=== PATIENT | male | born 1980 | race Caucasian/White ===

== ENCOUNTER 2019-03-09 17:53 | Day surgery (SDC) | payer SELFPAY ==
[2019-03-09] MEDS ORDERED: Sodium Chloride 0.9% 10 ML Syringe FLUSH PRN (18:25)
--- NOTE | 2019-03-09 18:31 | EDM.PDOC ---
ED HPI GENERAL MEDICAL PROBLEM - General Chief Complaint: Skin Complaint Stated Complaint: SWOLLEN FOOT NOT AN ACCIDENT Time Seen by Provider: 03/09/19 18:28 History Limitations: Reports: No Limitations - History of Present Illness INITIAL COMMENTS - FREE TEXT/NARRATIVE: 38 year old male present to ER with two females with severe left ankle pain and swelling. Patient denies fall or injury. Patient uses marijuana but has not used in the last 2 days. Patient has had fever and low grade temperature. Patient did not have symptoms yesterday in either foot. Patient has exquisite pain in the left ankle with swelling and erythema. Patient denies fall or injury. 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 Patient has slight pain in right ankle with erythema without swelling noted. Patient has a small open wound/blister in posterior Achilles skin. Patient has not taken Tylenol or Ibuprofen for pain as he does not like taking pills. Patient worked all last week and spent time with kids on Saturday. Patient has slight erythema left ankle on Saturday but did not think anything of it. Patient states the left ankle was sore all day on Saturday and severe today. Patient is unable to walk on ankle/foot at this time. Patient noted slight erythema right ankle which similar to the appearance of left ankle looked like on Saturday. Patient is not in a stable relationship as his previous significant other cheated with another male and he is having custody battles with her at this time. Patient denies penile rash, drainage or lesions in the recent or remote past. Patient adamantly denied drug use he hates needles and does not take pills. He uses Marijuana but has not used in 2 days. Patient was offended that the triage nurse asked about drug use due to agitation, rapid speech and general appearance of patient and family members at bedside. Left Ankle Pain Score (Numeric/FACES): 1 - Related Data Allergies Allergy/AdvReac Type Severity Reaction Status Date / Time No Known Allergies Allergy Verified 03/09/19 19:29 Home Meds: Home Meds NK [No Known Home Meds] 03/09/19 [History] Past Medical History Musculoskeletal History: Reports: Fracture - Past Surgical History Other Musculoskeletal Surgeries/Procedures:: hand surgery Social & Family History - Tobacco Use Smoking Status *Q: Current Every Day Smoker Years of Tobacco use: 25 Packs/Tins Daily: 0.5 - Caffeine Use Caffeine Use: Reports: Coffee, Energy Drinks, Soda, Tea - Recreational Drug Use Recreational Drug Use: Yes Recreational Drug Type: Reports: Marijuana/Hashish Recreational Drug Use Frequency: Daily ED ROS GENERAL - Review of Systems Review Of Systems: See Below (difficulty to obtained due to very rapid speach and agressive behavior) Constitutional: Reports: Fever, Chills HEENT: Reports: No Symptoms Respiratory: Reports: Other (pain with deep breath). Denies: Shortness of Breath, Wheezing, Cough, Sputum, Hemoptysis Cardiovascular: Reports: No Symptoms Endocrine: Reports: No Symptoms GI/Abdominal: Reports: No Symptoms : Reports: No Symptoms Musculoskeletal: Reports: Other (per HPI) Skin: Reports: Other (per HPI) Neurological: Reports: No Symptoms Psychiatric: Reports: Agitation (due to pain per patient. He does not like needles or taking pills) Hematologic/Lymphatic: Reports: No Symptoms Immunologic: Reports: No Symptoms ED EXAM, SKIN/RASH Exam: See Below General Appearance: Alert, WD/WN, Anxious, Severe Distress, Other (very rapid speach which is difficult to follow) Eye Exam: Bilateral Eye: EOMI, PERRL Ears: Normal External Exam, Normal Canal, Hearing Grossly Normal Nose: Normal Inspection, Normal Mucosa Throat/Mouth: Normal Inspection, Normal Lips, Normal Gums, Normal Oropharynx, Normal Voice, No Airway Compromise, Other (poor oral health) Head: Normocephalic Neck: Normal Inspection, Supple, Non-Tender, Full Range of Motion Respiratory/Chest: No Respiratory Distress, Lungs Clear, Normal Breath Sounds, No Accessory Muscle Use, Other (slight pain bilaterla lower ribs with deep breath) Cardiovascular: Normal Peripheral Pulses, Regular Rate, Rhythm, Tachycardia GI/Abdominal: Normal Bowel Sounds, Soft, Non-Tender, No Organomegaly, No Distention, No Abnormal Bruit, No Mass, Other (thin). No: Distended, Guarding, Rigid, Rebound, Tender Back Exam: Normal Inspection, Full Range of Motion, NT Extremities: Normal Inspection, Normal Range of Motion (except left ankle), No Pedal Edema, Normal Capillary Refill, Joint Swelling (significant swelling left ankle with abrasion posterior achilles, erythema, warmth and severe pain), Limited Range of Motion (severely limited), Increased Warmth, Redness, Other ( slight erythema blotch right ankle) Neurological: Alert, Oriented, CN II-XII Intact, Normal Reflexes, No Motor/ Sensory Deficits, Inattentive (rapid speach difficulty to follow), Abnormal Gait (due to left foot pain), Sensory/Motor Deficit (left foot pain out of proportion with examination) Psychiatric: Anxious, Other (very rapid in speach and upable to keep focuses. Family interrupt with questioning. ) Skin: Warm, Dry, Intact, Normal Color EKG INTERPRETATION EKG Date: 03/09/19 Time: 18:45 Rhythm: NSR Rate (Beats/Min): 98 [place]: Normal P-Wave: Present (baseline artificat in multiple LEADS) QRS: Normal ST-T: Normal (baseline artificat in multiple LEADS) QT: Prolonged (slightly 458) Comparison: NA - No Prior EKG Course - Vital Signs Last Recorded V/S: Last Vital Signs Temp 38.4 C H 03/09/19 19:02 Pulse 87 03/09/19 20:36 Resp 19 03/09/19 19:02 BP 99/67 03/09/19 20:36 Pulse Ox 96 03/09/19 19:02 - Orders/Labs/Meds Orders: Active Orders 24 hr Category Date Time Status Transfer Patient (Change bed) [ADT] ASDIRECTED ADT 03/09/19 21:09 Ordered EKG Documentation Completion [RC] ASDIRECTED Care 03/09/19 18:26 Active Peripheral IV Care [RC] . DIRECTED Care 03/09/19 18:26 Active Verify Patient Consent Obtain [RC] ASDIRECTED Care 03/09/19 20:54 Active NPO [Nothing Per Oral Diet] [DIET] Diet 03/10/19 Breakfast Active VL Duplex Lwr Ext Veins Comp [US] Stat Exams 03/09/19 19:12 Ordered CULTURE BLOOD [BC] Urgent Lab 03/09/19 18:30 Received CULTURE BLOOD [BC] Urgent Lab 03/09/19 18:43 Received CULTURE BODY FLUID + SMEAR [] Stat Lab 03/09/19 20:20 Results Iopamidol [Isovue-300 (61%)] Med 03/09/19 19:32 Active 100 ml IV . DIRECTED PRN Sodium Chloride 0.9% [Normal Saline] 1,000 ml Med 03/09/19 18:45 Active IV ASDIRECTED Sodium Chloride 0.9% [Saline Flush] Med 03/09/19 18:25 Active 10 ml FLUSH ASDIRECTED PRN Blood Culture x2 Reflex Set [OM.PC] Urgent Oth 03/09/19 18:26 Ordered Peripheral IV Insertion Adult [OM.PC] Urgent Oth 03/09/19 18:26 Ordered EKG 12 Lead [EK] Urgent Ther 03/09/19 18:26 Ordered Medication Orders Sodium Chloride (Normal Saline) 1,000 mls @ 1,000 mls/hr IV ASDIRECTED SCOTTY Last Admin: 03/09/19 18:43 Dose: 1,000 mls/hr Iopamidol (Isovue-300 (61%)) 100 ml IV . DIRECTED PRN PRN Reason: RADIOLOGY EXAM Stop: 03/10/19 19:33 Last Admin: 03/09/19 20:27 Dose: 100 ml Sodium Chloride (Saline Flush) 10 ml FLUSH ASDIRECTED PRN PRN Reason: Keep Vein Open Labs: Laboratory Tests 03/09/19 03/09/19 03/09/19 Range/Units 18:25 18:30 18:30 WBC 9.3 (4.5-11.0) K/uL RBC 4.11 L (4.30-5.90) M/uL Hgb 12.9 (12.0-15.0) g/dL Hct 37.1 L (40.0-54.0) % MCV 90 (80-98) fL MCH 31 (27-31) pg MCHC 35 (32-36) % Plt Count 332 (150-400) K/uL Neut % (Auto) 76 H (36-66) % Lymph % (Auto) 11 L (24-44) % [place] % (Auto) 13 H (2-6) % Eos % (Auto) 0 L (2-4) % Baso % (Auto) 0 (0-1) % PT (9.5-12.0) sec INR (0.80-1.20) D-Dimer, Quantitative 566 H (0.0-400.0) ng/mL Sodium 135 L (140-148) mmol/L Potassium 2.8 L* (3.6-5.2) mmol/L Chloride 98 L (100-108) mmol/L Carbon Dioxide 26 (21-32) mmol/L Anion Gap 13.8 (5.0-14.0) mmol/L BUN 10 (7-18) mg/dL Creatinine 1.1 (0.8-1.3) mg/dL Est Cr Clr Drug Dosing 103.23 mL/min Estimated GFR (MDRD) > 60 (>60) Glucose 103 (74-106) mg/dL Lactic Acid (0.4-2.0) mmol/L Calcium 8.4 L (8.5-10.1) mg/dL Magnesium (1.8-2.4) mg/dL C-Reactive Protein (0.0-0.3) mg/dL 03/09/19 03/09/19 03/09/19 Range/Units 18:30 18:30 18:30 WBC (4.5-11.0) K/uL RBC (4.30-5.90) M/uL Hgb (12.0-15.0) g/dL Hct (40.0-54.0) % MCV (80-98) fL MCH (27-31) pg MCHC (32-36) % Plt Count (150-400) K/uL Neut % (Auto) (36-66) % Lymph % (Auto) (24-44) % [place] % (Auto) (2-6) % Eos % (Auto) (2-4) % Baso % (Auto) (0-1) % PT 10.7 (9.5-12.0) sec INR 0.99 (0.80-1.20) D-Dimer, Quantitative (0.0-400.0) ng/mL Sodium (140-148) mmol/L Potassium (3.6-5.2) mmol/L Chloride (100-108) mmol/L Carbon Dioxide (21-32) mmol/L Anion Gap (5.0-14.0) mmol/L BUN (7-18) mg/dL Creatinine (0.8-1.3) mg/dL Est Cr Clr Drug Dosing mL/min Estimated GFR (MDRD) (>60) Glucose (74-106) mg/dL Lactic Acid 1.4 (0.4-2.0) mmol/L Calcium (8.5-10.1) mg/dL Magnesium (1.8-2.4) mg/dL C-Reactive Protein 15.25 H (0.0-0.3) mg/dL 03/09/19 Range/Units 19:33 WBC (4.5-11.0) K/uL RBC (4.30-5.90) M/uL Hgb (12.0-15.0) g/dL Hct (40.0-54.0) % MCV (80-98) fL MCH (27-31) pg MCHC (32-36) % Plt Count (150-400) K/uL Neut % (Auto) (36-66) % Lymph % (Auto) (24-44) % [place] % (Auto) (2-6) % Eos % (Auto) (2-4) % Baso % (Auto) (0-1) % PT (9.5-12.0) sec INR (0.80-1.20) D-Dimer, Quantitative (0.0-400.0) ng/mL Sodium (140-148) mmol/L Potassium (3.6-5.2) mmol/L Chloride (100-108) mmol/L Carbon Dioxide (21-32) mmol/L Anion Gap (5.0-14.0) mmol/L BUN (7-18) mg/dL Creatinine (0.8-1.3) mg/dL Est Cr Clr Drug Dosing mL/min Estimated GFR (MDRD) (>60) Glucose (74-106) mg/dL Lactic Acid (0.4-2.0) mmol/L Calcium (8.5-10.1) mg/dL Magnesium 2.1 (1.8-2.4) mg/dL C-Reactive Protein (0.0-0.3) mg/dL Meds: Medications Generic Name Dose Route Start Last Admin Trade Name Freq PRN Reason Stop Dose Admin Sodium Chloride 1,000 mls @ 1,000 mls/hr 03/09/19 18:45 03/09/19 18:43 Normal Saline IV 1,000 mls/hr ASDIRECTED SCOTTY Administration Iopamidol 100 ml 03/09/19 19:32 03/09/19 20:27 Isovue-300 (61%) IV 03/10/19 19:33 100 ml . DIRECTED PRN Administration RADIOLOGY EXAM Sodium Chloride 10 ml 03/09/19 18:25 Saline Flush FLUSH ASDIRECTED PRN Keep Vein Open Discontinued Medications Generic Name Dose Route Start Last Admin Trade Name Galo PRN Reason Stop Dose Admin Hydromorphone HCl 0.5 mg 03/09/19 18:33 03/09/19 18:42 Dilaudid IVPUSH 03/09/19 18:34 0.5 mg ONETIME ONE Administration Ceftriaxone Sodium 1 gm/ 50 mls @ 100 mls/hr 03/09/19 20:56 Sodium Chloride IV 03/09/19 21:25 ONETIME ONE Ketorolac Tromethamine 30 mg 03/09/19 18:37 03/09/19 18:42 Toradol IVPUSH 03/09/19 18:38 30 mg ONETIME ONE Administration Lorazepam 2 mg 03/09/19 18:33 03/09/19 18:43 Ativan IVPUSH 03/09/19 18:34 2 mg ONETIME ONE Administration Metoclopramide HCl 5 mg 03/09/19 18:33 03/09/19 18:43 Reglan IVPUSH 03/09/19 18:34 5 mg ONETIME ONE Administration - Re-Assessments/Exams Free Text/Narrative Re-Assessment/Exam: I went to reassess patient. He is on the phone and states pain is improved and does not need any more medications at this time. 03/09/19 19:09 Lab called about a critical potassium of 2.8. Patient updated and stated he has a history of low potassium. He was given medication to elevated potassium and he got a rash. He does not take potassium supplement and does not want it treated at this time. I contacted supervisor network control operators Orthopedic surgeon for evaluation of septic left ankle based on examination findings. Patient denies injury. I requested CT Extremity with contrast and US be held until Orthopedic evaluation. 03/09/19 19:32 Patient was not in room for reassessment. I called Radiology and patient was taken to get imaging without asking nurses about orders. Radiology was more than half way thru the study at the time of my phone call. 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 Joint aspiration completed noting hemarthrosis. Gram Stain and Culture ordered. 03/09/19 20:10 Spoke with Orthopedic surgeon regarding gram stain which was negative. He reviewed the CT scan which should a lot of reactive changed in the soft tissue and joint. Dr Velez is planning to take the patient to the OR for joint washout, IV Antibiotic and further treatment. 03/09/19 21:06 Departure - Departure Time of Disposition: 21:29 Disposition: Admitted As Inpatient 67 Clinical Impression: Sepsis, Hemarthrosis, ankle and foot, Septic joint - Discharge Information - My Orders Last 24 Hours: My Active Orders 03/09/19 18:25 Sodium Chloride 0.9% [Saline Flush] 10 ml FLUSH ASDIRECTED PRN 03/09/19 18:26 EKG Documentation Completion [RC] ASDIRECTED Peripheral IV Care [RC] . DIRECTED Blood Culture x2 Reflex Set [OM.PC] Urgent Peripheral IV Insertion Adult [OM.PC] Urgent EKG 12 Lead [EK] Urgent 03/09/19 18:30 CULTURE BLOOD [BC] Urgent 03/09/19 18:43 CULTURE BLOOD [BC] Urgent 03/09/19 18:45 Sodium Chloride 0.9% [Normal Saline] 1,000 ml IV ASDIRECTED 03/09/19 19:12 VL Duplex Lwr Ext Veins Comp [US] Stat 03/09/19 19:32 Iopamidol [Isovue-300 (61%)] 100 ml IV . DIRECTED PRN 03/09/19 21:09 Transfer Patient (Change bed) [ADT] ASDIRECTED - Assessment/Plan Last 24 Hours: My Active Orders 03/09/19 18:25 Sodium Chloride 0.9% [Saline Flush] 10 ml FLUSH ASDIRECTED PRN 03/09/19 18:26 EKG Documentation Completion [RC] ASDIRECTED Peripheral IV Care [RC] . DIRECTED Blood Culture x2 Reflex Set [OM.PC] Urgent Peripheral IV Insertion Adult [OM.PC] Urgent EKG 12 Lead [EK] Urgent 03/09/19 18:30 CULTURE BLOOD [BC] Urgent 03/09/19 18:43 CULTURE BLOOD [BC] Urgent 03/09/19 18:45 Sodium Chloride 0.9% [Normal Saline] 1,000 ml IV ASDIRECTED 03/09/19 19:12 VL Duplex Lwr Ext Veins Comp [US] Stat 03/09/19 19:32 Iopamidol [Isovue-300 (61%)] 100 ml IV . DIRECTED PRN 03/09/19 21:09 Transfer Patient (Change bed) [ADT] ASDIRECTED
[2019-03-09] MEDS ORDERED: Metoclopramide 10 MG/2 ML SDV IVPUSH ONE (18:33)
[2019-03-09] MEDS ORDERED: HYDROmorphone 0.5 MG/0.5 ML Syringe IVPUSH ONE (18:33)
[2019-03-09] MEDS ORDERED: LORazepam 2 MG/ML SDV IVPUSH ONE (18:33)
[2019-03-09] MEDS ORDERED: Ketorolac 30 MG/ML SDV IVPUSH ONE (18:37)
[2019-03-09] MEDS ORDERED: Sodium Chloride 0.9% 1,000 ML IV SCH (18:45)
[2019-03-09] MEDS ORDERED: Iopamidol 612 MG/ML 100 ML Bottle IV PRN (19:32)
[2019-03-09] MEDS ORDERED: cefTRIAXone 1 GM in Sodium Chloride 0.9% 50 ML IV ONE (20:56)
--- NOTE | 2019-03-09 21:04 | CRLCT ---
HISTORY: Sepsis. Severe left foot and ankle pain. TECHNIQUE: CT left foot and ankle with IV contrast. COMPARISON: None. FINDINGS: Severe motion artifact through a portion of the hindfoot and midfoot limits evaluation of portions of the talus, calcaneus, navicular, and cuneiforms. Milder motion artifact in the forefoot at the level of the distal metatarsals. Infiltration of subcutaneous fat in the distal lower leg, hindfoot, and dorsum of the foot. No fluid collection. No soft tissue gas. Reticular infiltration of the pre Achilles fat pad. No significant increase in tendon sheath fluid. 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 No erosions. Ankle joint is maintained. IMPRESSION: 1. Motion compromised exam. 2. Subcutaneous fat infiltration may be from edema or cellulitis. No fluid collection. No soft tissue gas. 3. 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 Please note that all CT scans at this facility use dose modulation, iterative reconstruction, and/or weight-based dosing when appropriate to reduce radiation dose to as low as reasonably achievable. Dictated by Arnav Perez MD @ Mar 10 2019 7:58AM Signed by Dr. Arnav Perez @ Mar 10 2019 8:04AM
--- NOTE | 2019-03-09 21:15 | PCM.HP.2 ---
H&P History of Present Illness - General Date of Service: 03/09/19 Source of Information: Patient History Limitations: Reports: No Limitations - History of Present Illness Initial Comments - Free Text/Narative: 38 year old white male presents to ED with progressive left ankle pain since yesterday. No trauma. Was unable to weight bear on it today and has had fevers and chills. Also reports diarrhea today, otherwise has not been sick. Has increased temp here in ED and pain in left ankle that is difficult to control. Onset of Symptoms: Reports: Gradual Symptom Onset Date: 03/08/19 Duration of Symptoms: Reports: Getting Worse Location: Reports: Lower Extremity, Left Quality: Reports: Pressure Severity: Severe Improves with: Reports: None Worsens with: Reports: Movement Context: Reports: Other (fever) Associated Symptoms: Reports: Fever/Chills Left Ankle Pain Score (Numeric/FACES): 1 - Related Data Allergies/Adverse Reactions: Allergies Allergy/AdvReac Type Severity Reaction Status Date / Time No Known Allergies Allergy Verified 03/09/19 19:29 Home Medications: Home Meds NK [No Known Home Meds] 03/09/19 [History] Past Medical History Musculoskeletal History: Reports: Fracture - Past Surgical History Other Musculoskeletal Surgeries/Procedures:: hand surgery Social & Family History - Tobacco Use Smoking Status *Q: Current Every Day Smoker Years of Tobacco use: 25 Packs/Tins Daily: 0.5 - Caffeine Use Caffeine Use: Reports: Coffee, Energy Drinks, Soda, Tea - Recreational Drug Use Recreational Drug Use: Yes Recreational Drug Type: Reports: Marijuana/Hashish Recreational Drug Use Frequency: Daily H&P Review of Systems - Review of Systems: Review Of Systems: See Below General: Reports: Fever, Chills, Malaise HEENT: Reports: No Symptoms Pulmonary: Reports: No Symptoms Cardiovascular: Reports: No Symptoms Gastrointestinal: Reports: Diarrhea Genitourinary: Reports: No Symptoms Musculoskeletal: Reports: Joint Pain, Other (left ankle) Skin: Reports: No Symptoms Psychiatric: Reports: No Symptoms Neurological: Reports: No Symptoms Hematologic/Lymphatic: Reports: No Symptoms Immunologic: Reports: No Symptoms Exam - Exam Exam: See Below - Vital Signs Vital Signs: Last Vital Signs Temp 38.4 C H 03/09/19 19:02 Pulse 87 03/09/19 20:36 Resp 19 03/09/19 19:02 BP 99/67 03/09/19 20:36 Pulse Ox 96 03/09/19 19:02 Weight: 79.379 kg - Exam General: Alert, Oriented, 4 HEENT: PERRLA, Conjunctiva Clear, EACs Clear, EOMI, Hearing Intact, Mucosa Moist & [place], Nares Patent, Normal Nasal Septum, Posterior Pharynx Clear Neck: Supple, Trachea Midline, 2 Lungs: Clear to Auscultation, Normal Respiratory Effort Cardiovascular: Regular Rate, Regular Rhythm GI/Abdominal Exam: Normal Bowel Sounds, Soft, Non-Tender, No Organomegaly, No Distention, No Mass (Male) Exam: Deferred Rectal (Males) Exam: Deferred Back Exam: Normal Inspection, Full Range of Motion, NT Extremities: Limited Range of Motion, Increased Warmth, Other (pain with any attempted motion left ankle, warm to touch foot, ankle and lower leg) Skin: Warm, Dry, Other (small blister posterior foot with no signs of infection) Neurological: Cranial Nerves Intact, Reflexes Equal Bilateral Neuro Extensive - Mental Status: Alert, Oriented x3, Normal Mood/Affect, Normal Cognition Psychiatric: Alert, Normal Affect, Normal Mood - Patient Data Lab Results Last 24 hrs: Laboratory Results - last 24 hr 03/09/19 03/09/19 03/09/19 Range/Units 18:25 18:30 18:30 WBC 9.3 (4.5-11.0) K/uL RBC 4.11 L (4.30-5.90) M/uL Hgb 12.9 (12.0-15.0) g/dL Hct 37.1 L (40.0-54.0) % MCV 90 (80-98) fL MCH 31 (27-31) pg MCHC 35 (32-36) % Plt Count 332 (150-400) K/uL Neut % (Auto) 76 H (36-66) % Lymph % (Auto) 11 L (24-44) % [place] % (Auto) 13 H (2-6) % Eos % (Auto) 0 L (2-4) % Baso % (Auto) 0 (0-1) % PT (9.5-12.0) sec INR (0.80-1.20) D-Dimer, Quantitative 566 H (0.0-400.0) ng/mL Sodium 135 L (140-148) mmol/L Potassium 2.8 L* (3.6-5.2) mmol/L Chloride 98 L (100-108) mmol/L Carbon Dioxide 26 (21-32) mmol/L Anion Gap 13.8 (5.0-14.0) mmol/L BUN 10 (7-18) mg/dL Creatinine 1.1 (0.8-1.3) mg/dL Est Cr Clr Drug Dosing 103.23 mL/min Estimated GFR (MDRD) > 60 (>60) Glucose 103 (74-106) mg/dL Lactic Acid (0.4-2.0) mmol/L Calcium 8.4 L (8.5-10.1) mg/dL Magnesium (1.8-2.4) mg/dL C-Reactive Protein (0.0-0.3) mg/dL 03/09/19 03/09/19 03/09/19 Range/Units 18:30 18:30 18:30 WBC (4.5-11.0) K/uL RBC (4.30-5.90) M/uL Hgb (12.0-15.0) g/dL Hct (40.0-54.0) % MCV (80-98) fL MCH (27-31) pg MCHC (32-36) % Plt Count (150-400) K/uL Neut % (Auto) (36-66) % Lymph % (Auto) (24-44) % [place] % (Auto) (2-6) % Eos % (Auto) (2-4) % Baso % (Auto) (0-1) % PT 10.7 (9.5-12.0) sec INR 0.99 (0.80-1.20) D-Dimer, Quantitative (0.0-400.0) ng/mL Sodium (140-148) mmol/L Potassium (3.6-5.2) mmol/L Chloride (100-108) mmol/L Carbon Dioxide (21-32) mmol/L Anion Gap (5.0-14.0) mmol/L BUN (7-18) mg/dL Creatinine (0.8-1.3) mg/dL Est Cr Clr Drug Dosing mL/min Estimated GFR (MDRD) (>60) Glucose (74-106) mg/dL Lactic Acid 1.4 (0.4-2.0) mmol/L Calcium (8.5-10.1) mg/dL Magnesium (1.8-2.4) mg/dL C-Reactive Protein 15.25 H (0.0-0.3) mg/dL 03/09/19 Range/Units 19:33 WBC (4.5-11.0) K/uL RBC (4.30-5.90) M/uL Hgb (12.0-15.0) g/dL Hct (40.0-54.0) % MCV (80-98) fL MCH (27-31) pg MCHC (32-36) % Plt Count (150-400) K/uL Neut % (Auto) (36-66) % Lymph % (Auto) (24-44) % [place] % (Auto) (2-6) % Eos % (Auto) (2-4) % Baso % (Auto) (0-1) % PT (9.5-12.0) sec INR (0.80-1.20) D-Dimer, Quantitative (0.0-400.0) ng/mL Sodium (140-148) mmol/L Potassium (3.6-5.2) mmol/L Chloride (100-108) mmol/L Carbon Dioxide (21-32) mmol/L Anion Gap (5.0-14.0) mmol/L BUN (7-18) mg/dL Creatinine (0.8-1.3) mg/dL Est Cr Clr Drug Dosing mL/min Estimated GFR (MDRD) (>60) Glucose (74-106) mg/dL Lactic Acid (0.4-2.0) mmol/L Calcium (8.5-10.1) mg/dL Magnesium 2.1 (1.8-2.4) mg/dL C-Reactive Protein (0.0-0.3) mg/dL Result Diagrams: 03/09/19 18:30 03/09/19 18:25 [place] Results Last 24 hrs: Microbiology 03/09/19 20:20 Gram Stain - Final Joint / Synovial Fluid - Ankle, Left Problem List Initiated/Reviewed/Updated: Yes Orders Last 24hrs: Active Orders 24 hr Category Date Time Status Transfer Patient (Change bed) [ADT] ASDIRECTED ADT 03/09/19 21:09 Ordered EKG Documentation Completion [RC] ASDIRECTED Care 03/09/19 18:26 Active Peripheral IV Care [RC] . DIRECTED Care 03/09/19 18:26 Active Verify Patient Consent Obtain [RC] ASDIRECTED Care 03/09/19 20:54 Active NPO [Nothing Per Oral Diet] [DIET] Diet 03/10/19 Breakfast Active VL Duplex Lwr Ext Veins Comp [US] Stat Exams 03/09/19 19:12 Ordered CULTURE BLOOD [BC] Urgent Lab 03/09/19 18:30 Received CULTURE BLOOD [BC] Urgent Lab 03/09/19 18:43 Received CULTURE BODY FLUID + SMEAR [RM] Stat Lab 03/09/19 20:20 Results Iopamidol [Isovue-300 (61%)] Med 03/09/19 19:32 Active 100 ml IV . DIRECTED PRN Sodium Chloride 0.9% [Normal Saline] 1,000 ml Med 03/09/19 18:45 Active IV ASDIRECTED Sodium Chloride 0.9% [Saline Flush] Med 03/09/19 18:25 Active 10 ml FLUSH ASDIRECTED PRN cefTRIAXone [Rocephin] 1 gm Med 03/09/19 20:56 Active Sodium Chloride 0.9% [Normal Saline] 50 ml IV ONETIME Blood Culture x2 Reflex Set [OM.PC] Urgent Oth 03/09/19 18:26 Ordered Peripheral IV Insertion Adult [OM.PC] Urgent Oth 03/09/19 18:26 Ordered EKG 12 Lead [EK] Urgent Ther 03/09/19 18:26 Ordered Medication Orders Sodium Chloride (Normal Saline) 1,000 mls @ 1,000 mls/hr IV ASDIRECTED [facility] Last Admin: 03/09/19 18:43 Dose: 1,000 mls/hr Ceftriaxone Sodium 1 gm/ (Sodium Chloride) 50 mls @ 100 mls/hr IV ONETIME ONE Stop: 03/09/19 21:25 Iopamidol (Isovue-300 (61%)) 100 ml IV . DIRECTED PRN PRN Reason: RADIOLOGY EXAM Stop: 03/10/19 19:33 Last Admin: 03/09/19 20:27 Dose: 100 ml Sodium Chloride (Saline Flush) 10 ml FLUSH ASDIRECTED PRN PRN Reason: Keep Vein Open Assessment/Plan Comment:: Markedly elevated CRP, CT with large fluid collection around ankle and aspiration with blood tinged cloudy fluid, Gm Stain negative, cultures pending. Denies drug use other than marijuana. Otherwise healthy, except for low potassium. No obvious source of infection. Most likely organism would be S. Aureus or N. Gonorrhea. Plan: Admit for irrigation of left ankle joint and IV antibiotics. Start on Rocephin, watch cultures and change antibiotics as indicated.
[2019-03-09] MEDS ORDERED: Bupivacaine 0.25% 10 ML SDV ONE (21:49)
[2019-03-09] MEDS ORDERED: Propofol 200 MG/20 ML SDV ONE (21:51)
[2019-03-09] MEDS ORDERED: fentaNYL 100 MCG/2 ML SDV ONE (21:51)
[2019-03-09] MEDS ORDERED: Midazolam 1 MG/ML 2 ML SDV ONE (21:51)
--- NOTE | 2019-03-09 22:14 | CRLUS ---
INDICATION: Elevated D-dimer. Swelling and severe pain. COMPARISON: none TECHNIQUE: A compression venous ultrasound exam was performed of both lower extremities using dodge scale imaging, color Doppler and spectral Doppler analysis. FINDINGS: Sonographic imaging of the lower extremities demonstrates normal compressibility and color Doppler venous blood flow within the common femoral, deep femoral, and proximal greater saphenous veins. Within the thighs the femoral veins are patent and compressible. At a lower level the popliteal and posterior tibial veins also show normal compressibility and color Doppler venous blood flow. IMPRESSION: Normal venous ultrasound exam. No evidence of deep vein thrombosis within either the left or right lower extremity. Dictated by Merry Briseno MD @ Mar 09 2019 10:12PM Signed by Dr. Merry Briseno @ Mar 09 2019 10:13PM
[2019-03-09] MEDS ORDERED: Acetaminophen/oxyCODONE 325-5 MG Tab PO PRN (22:30)
[2019-03-09] MEDS ORDERED: Morphine 2 MG/ML Syringe IVPUSH PRN (22:30)
[2019-03-09] MEDS ORDERED: Acetaminophen/HYDROcodone 325-5 MG Tab PO PRN (22:31)
[2019-03-10] MEDS: Lactated Ringers 1,000 ML IV SCH ×2 (00:38→18:17)
[2019-03-10] MEDS ORDERED: FLU Vacc QS2019-20(6MOS+)/PF 60 MCG/0.5 ML SYRINGE IM ONE (09:00)
[2019-03-10] MEDS ORDERED: Azithromycin 250 MG Tab PO SCH (09:00)
[2019-03-10] MEDS: cefTRIAXone 1 GM in Sodium Chloride 0.9% 50 ML IV SCH (17:28)
[2019-03-10] MEDS ORDERED: Acetaminophen 325 MG Tab PO PRN (18:24)
[2019-03-10] MEDS: Acetaminophen/oxyCODONE 325-5 MG Tab PO PRN (20:03)
[2019-03-11] MEDS: Lactated Ringers 1,000 ML IV SCH ×2 (02:07→13:58)
--- NOTE | 2019-03-11 05:31 | PCM.SURGPN ---
- General Info Date of Service: 03/10/19 Date of Surgery/Procedure: 03/09/19 POD#: 1 Functional Status: Reports: Pain Controlled - Review of Systems HEENT: Reports: No Symptoms Pulmonary: Reports: No Symptoms Cardiovascular: Reports: No Symptoms Gastrointestinal: Reports: No Symptoms Genitourinary: Reports: No Symptoms Musculoskeletal: Reports: Joint Pain, Joint Swelling Skin: Reports: No Symptoms Neurological: Reports: No Symptoms Psychiatric: Reports: No Symptoms - Patient Data Vitals - Most Recent: Last Vital Signs Temp 36.9 C 03/11/19 04:27 Pulse 77 03/11/19 04:27 Resp 18 03/11/19 04:27 BP 95/52 L 03/11/19 04:27 Pulse Ox 97 03/11/19 04:27 Weight - Most Recent: 79.379 kg I&O - Last 24 Hours: Intake & Output 03/10/19 03/10/19 03/11/19 14:59 22:59 06:59 Intake Total 1950 50 Output Total 275 Balance 1951 50 -275 Lab Results Last 24 Hrs: Laboratory Results - last 24 hr 03/10/19 Range/Units 11:44 Urine Opiates Screen Negative (NEGATIVE) Ur Oxycodone Screen Presumptive positive H (NEGATIVE) Urine Methadone Screen Negative (NEGATIVE) Ur Propoxyphene Screen Negative (NEGATIVE) Ur Barbiturates Screen Negative (NEGATIVE) Ur Tricyclics Screen Negative (NEGATIVE) Ur Phencyclidine Scrn Negative (NEGATIVE) Ur Amphetamine Screen Presumptive positive H (NEGATIVE) U Methamphetamines Scrn Presumptive positive H (NEGATIVE) Urine MDMA Screen Negative (NEGATIVE) U Benzodiazepines Scrn Presumptive positive H (NEGATIVE) U Cocaine Metab Screen Negative (NEGATIVE) U Marijuana (THC) Screen Presumptive positive H (NEGATIVE) Kayode Results Last 24 Hrs: Microbiology 03/09/19 18:43 Aerobic Blood Culture - Preliminary Blood - Arm, Right NO GROWTH AFTER 1 DAY Anaerobic Blood Culture - Preliminary NO GROWTH AFTER 1 DAY 03/09/19 18:30 Aerobic Blood Culture - Preliminary Blood - Venous - Iv Start NO GROWTH AFTER 1 DAY Anaerobic Blood Culture - Preliminary NO GROWTH AFTER 1 DAY Med Orders - Current: Current Medications Acetaminophen (Tylenol) 650 mg PO Q4H PRN PRN Reason: Fever Last Admin: 03/10/19 18:32 Dose: 650 mg Hydrocodone Bitart/Acetaminophen ([place] 325-5 Mg) 1 tab PO Q3H PRN PRN Reason: Pain (mild 1-3) Sodium Chloride (Normal Saline) 1,000 mls @ 1,000 mls/hr IV ASDIRECTED [facility] Last Admin: 03/09/19 18:43 Dose: 1,000 mls/hr Lactated Ringer's (Ringers, Lactated) 1,000 mls @ 125 mls/hr IV ASDIRECTED [facility] Last Admin: 03/11/19 02:07 Dose: 125 mls/hr Ceftriaxone Sodium 1 gm/ (Sodium Chloride) 50 mls @ 100 mls/hr IV Q24H [facility] Last Admin: 03/10/19 17:28 Dose: 100 mls/hr Morphine Sulfate (Morphine) 2 mg IVPUSH Q1H PRN PRN Reason: Breakthrough Pain Oxycodone/Acetaminophen (Percocet 325-5 Mg) 1 - 2 tab PO Q4H PRN PRN Reason: Pain Last Admin: 03/10/19 20:03 Dose: 1 tab Sodium Chloride (Saline Flush) 10 ml FLUSH ASDIRECTED PRN PRN Reason: Keep Vein Open Discontinued Medications Azithromycin (Zithromax) 500 mg PO DAILY [facility] Last Admin: 03/10/19 08:35 Dose: 500 mg Bupivacaine HCl (Sensorcaine-Mpf 0.25%) Confirm Administered Dose 10 ml .ROUTE .STK-MED ONE Stop: 03/09/19 21:50 Last Admin: 03/09/19 22:15 Dose: 10 ml Fentanyl (Sublimaze) Confirm Administered Dose 100 mcg .ROUTE .STK-MED ONE Stop: 03/09/19 21:52 Hydromorphone HCl (Dilaudid) 0.5 mg IVPUSH ONETIME ONE Stop: 03/09/19 18:34 Last Admin: 03/09/19 18:42 Dose: 0.5 mg Ceftriaxone Sodium 1 gm/ (Sodium Chloride) 50 mls @ 100 mls/hr IV ONETIME ONE Stop: 03/09/19 21:25 Last Admin: 03/09/19 22:12 Dose: 100 mls/hr Influenza Virus Vaccine (Pharmacy To Dose - Influenza Vaccine) 1 each IM ONETIME ONE Stop: 03/10/19 09:01 Influenza Virus Vaccine (Fluzone Quad [id number] Syringe) 60 mcg IM .ONCE ONE Stop: 03/10/19 09:01 Last Admin: 03/10/19 08:23 Dose: Not Given Iopamidol (Isovue-300 (61%)) 100 ml IV . DIRECTED PRN PRN Reason: RADIOLOGY EXAM Stop: 03/10/19 19:33 Last Admin: 03/09/19 20:27 Dose: 100 ml Ketorolac Tromethamine (Toradol) 30 mg IVPUSH ONETIME ONE Stop: 03/09/19 18:38 Last Admin: 03/09/19 18:42 Dose: 30 mg Lorazepam (Ativan) 2 mg IVPUSH ONETIME ONE Stop: 03/09/19 18:34 Last Admin: 03/09/19 18:43 Dose: 2 mg Metoclopramide HCl (Reglan) 5 mg IVPUSH ONETIME ONE Stop: 03/09/19 18:34 Last Admin: 03/09/19 18:43 Dose: 5 mg Midazolam HCl (Versed 1 Mg/Ml) Confirm Administered Dose 2 mg .ROUTE .STK-MED ONE Stop: 03/09/19 21:52 Oxycodone/Acetaminophen (Percocet 325-5 Mg) 0 tab PO Q4H PRN PRN Reason: Pain (severe 7-10) Last Admin: 03/10/19 05:07 Dose: 2 tab Propofol (Diprivan 20 Ml) Confirm Administered Dose 200 mg .ROUTE .STK-MED ONE Stop: 03/09/19 21:52 - Exam Wound/Incisions: Dressing Dry and Intact General: Alert, Oriented HEENT: Pupils Equal Neck: Supple Lungs: Clear to Auscultation, Normal Respiratory Effort Cardiovascular: Regular Rate, Regular Rhythm GI/Abdominal Exam: Normal Bowel Sounds, Soft, Non-Tender, No Organomegaly, No Distention, No Abnormal Bruit, No Mass, Pelvis Stable Extremities: Limited Range of Motion, Increased Warmth Neurological: No New Focal Deficit Psy/Mental Status: Alert, Normal Affect, Normal Mood - Problem List & Annotations (1) Septic joint SNOMED Code(s): 476502828 Code(s): M00.9 - PYOGENIC ARTHRITIS, UNSPECIFIED Status: Acute Current Visit: Yes Qualifiers: Septic arthritis location: ankle Septic arthritis organism: due to unspecified organism (2) Status post incision and drainage SNOMED Code(s): 682868197, 445415486 Code(s): Z98.890 - OTHER SPECIFIED POSTPROCEDURAL STATES Status: Acute Current Visit: Yes - Problem List Review Problem List Initiated/Reviewed/Updated: Yes - My Orders Last 24 Hours: Active Orders 24 hr Category Date Time Status NPO [Nothing Per Oral Diet] [DIET] Diet 03/10/19 Breakfast Active Regular Diet [DIET] Diet 03/10/19 Breakfast Active Acetaminophen [Tylenol] Med 03/10/19 18:24 Active 650 mg PO Q4H PRN Acetaminophen/oxyCODONE [Percocet 325-5 MG] Med 03/10/19 07:08 Active 1 - 2 tab PO Q4H PRN cefTRIAXone [Rocephin] 1 gm Med 03/10/19 16:00 Active Sodium Chloride 0.9% [Normal Saline] 50 ml IV Q24H Medication Orders Acetaminophen (Tylenol) 650 mg PO Q4H PRN PRN Reason: Fever Last Admin: 03/10/19 18:32 Dose: 650 mg Hydrocodone Bitart/Acetaminophen ([place] 325-5 Mg) 1 tab PO Q3H PRN PRN Reason: Pain (mild 1-3) Sodium Chloride (Normal Saline) 1,000 mls @ 1,000 mls/hr IV [facility]ED [facility] Last Admin: 03/09/19 18:43 Dose: 1,000 mls/hr Lactated Ringer's (Ringers, Lactated) 1,000 mls @ 125 mls/hr IV ASDIRECTED [facility] Last Admin: 03/11/19 02:07 Dose: 125 mls/hr Infusion: 03/11/19 02:07 Dose: 125 mls/hr Admin: 03/10/19 18:17 Dose: 125 mls/hr Infusion: 03/10/19 08:38 Dose: 125 mls/hr Admin: 03/10/19 00:38 Dose: 125 mls/hr Ceftriaxone Sodium 1 gm/ (Sodium Chloride) 50 mls @ 100 mls/hr IV Q24H [facility] Last Admin: 03/10/19 17:28 Dose: 100 mls/hr Morphine Sulfate (Morphine) 2 mg IVPUSH Q1H PRN PRN Reason: Breakthrough Pain Oxycodone/Acetaminophen (Percocet 325-5 Mg) 1 - 2 tab PO Q4H PRN PRN Reason: Pain Last Admin: 03/10/19 20:03 Dose: 1 tab Sodium Chloride (Saline Flush) 10 ml FLUSH ASDIRECTED PRN PRN Reason: Keep Vein Open - Assessment Assessment (Free Text/Narrative):: Dressing and drain removed, mild drainage form drain site, serous, moderate swelling slightly improved from last night, no erythema. Gm Stain negative, culture pending - Plan Plan (Free Text/Narrative):: Continue IV antibiotics, will need 7-14 days. There is a question of insurance coverage since he does not have insurance information with him. Reluctant to place PICC due to possible recreational drug use. Patient denies use other than marijuana but drug screen positive for Meth. Risks of consequences of not completing antibiotic therapy explained.
[2019-03-11] MEDS: Acetaminophen/oxyCODONE 325-5 MG Tab PO PRN ×3 (09:06→19:43)
[2019-03-11] MEDS: cefTRIAXone 1 GM in Sodium Chloride 0.9% 50 ML IV SCH (15:57)
[2019-03-12] MEDS ORDERED: Morphine 2 MG/ML Syringe ONE (03:21)
[2019-03-12] MEDS ORDERED: LORazepam 2 MG/ML SDV IVPUSH ONE (03:48)
[2019-03-12] MEDS ORDERED: LORazepam 2 MG/ML SDV ONE (04:09)
[2019-03-12] MEDS: Acetaminophen/oxyCODONE 325-5 MG Tab PO PRN ×3 (08:14→19:31)
--- NOTE | 2019-03-12 13:19 | PCM.SURGPN ---
- General Info Date of Service: 03/11/19 POD#: 2 Functional Status: Reports: Pain Controlled, Tolerating Diet, Ambulating, Urinating - Review of Systems General: Reports: Fever, Chills HEENT: Reports: No Symptoms Pulmonary: Reports: No Symptoms Cardiovascular: Reports: No Symptoms Gastrointestinal: Reports: No Symptoms Genitourinary: Reports: No Symptoms Musculoskeletal: Reports: Joint Pain, Joint Swelling Skin: Reports: No Symptoms Neurological: Reports: No Symptoms Psychiatric: Reports: No Symptoms - Patient Data Vitals - Most Recent: Last Vital Signs Temp 35.8 C 03/12/19 10:32 Pulse 60 03/12/19 10:32 Resp 16 03/12/19 10:32 BP 96/58 L 03/12/19 10:32 Pulse Ox 97 03/12/19 10:32 Weight - Most Recent: 79.379 kg I&O - Last 24 Hours: Intake & Output 03/11/19 03/12/19 03/12/19 22:59 06:59 14:59 Intake Total 3358 1000 Balance 3358 1000 Kayode Results Last 24 Hrs: Microbiology 03/09/19 20:20 Gram Stain - Final Joint / Synovial Fluid - Ankle, Left Body Fluid Culture - Preliminary NO GROWTH AFTER 2 DAYS 03/09/19 18:30 Aerobic Blood Culture - Preliminary Blood - Venous - Iv Start NO GROWTH AFTER 2 DAYS Anaerobic Blood Culture - Preliminary NO GROWTH AFTER 2 DAYS 03/09/19 18:43 Aerobic Blood Culture - Preliminary Blood - Arm, Right NO GROWTH AFTER 2 DAYS Anaerobic Blood Culture - Preliminary NO GROWTH AFTER 2 DAYS Med Orders - Current: Current Medications Acetaminophen (Tylenol) 650 mg PO Q4H PRN PRN Reason: Fever Last Admin: 03/10/19 18:32 Dose: 650 mg Hydrocodone Bitart/Acetaminophen ([place]ameron 325-5 Mg) 1 tab PO Q3H PRN PRN Reason: Pain (mild 1-3) Sodium Chloride (Normal Saline) 1,000 mls @ 1,000 mls/hr IV ASDIRECTED [facility] Last Admin: 03/09/19 18:43 Dose: 1,000 mls/hr Lactated Ringer's (Ringers, Lactated) 1,000 mls @ 125 mls/hr IV ASDIRECTED [facility] Last Admin: 03/11/19 13:58 Dose: 125 mls/hr Ceftriaxone Sodium 1 gm/ (Sodium Chloride) 50 mls @ 100 mls/hr IV Q24H [facility] Last Admin: 03/11/19 15:57 Dose: 100 mls/hr Ketorolac Tromethamine (Toradol) 10 mg PO Q6H [facility] Stop: 03/14/19 13:16 Morphine Sulfate (Morphine) 2 mg IVPUSH Q1H PRN PRN Reason: Breakthrough Pain Last Admin: 03/12/19 03:23 Dose: 2 mg Oxycodone/Acetaminophen (Percocet 325-5 Mg) 1 - 2 tab PO Q4H PRN PRN Reason: Pain Last Admin: 03/12/19 08:14 Dose: 2 tab Sodium Chloride (Saline Flush) 10 ml FLUSH ASDIRECTED PRN PRN Reason: Keep Vein Open Discontinued Medications Azithromycin (Zithromax) 500 mg PO DAILY [facility] Last Admin: 03/10/19 08:35 Dose: 500 mg Bupivacaine HCl (Sensorcaine-Mpf 0.25%) Confirm Administered Dose 10 ml .ROUTE .STK-MED ONE Stop: 03/09/19 21:50 Last Admin: 03/09/19 22:15 Dose: 10 ml Fentanyl (Sublimaze) Confirm Administered Dose 100 mcg .ROUTE .STK-MED ONE Stop: 03/09/19 21:52 Hydromorphone HCl (Dilaudid) 0.5 mg IVPUSH ONETIME ONE Stop: 03/09/19 18:34 Last Admin: 03/09/19 18:42 Dose: 0.5 mg Ceftriaxone Sodium 1 gm/ (Sodium Chloride) 50 mls @ 100 mls/hr IV ONETIME ONE Stop: 03/09/19 21:25 Last Admin: 03/09/19 22:12 Dose: 100 mls/hr Influenza Virus Vaccine (Pharmacy To Dose - Influenza Vaccine) 1 each IM ONETIME ONE Stop: 03/10/19 09:01 Influenza Virus Vaccine (Fluzone Quad [id number] Syringe) 60 mcg IM .ONCE ONE Stop: 03/10/19 09:01 Last Admin: 03/10/19 08:23 Dose: Not Given Iopamidol (Isovue-300 (61%)) 100 ml IV . DIRECTED PRN PRN Reason: RADIOLOGY EXAM Stop: 03/10/19 19:33 Last Admin: 03/09/19 20:27 Dose: 100 ml Ketorolac Tromethamine (Toradol) 30 mg IVPUSH ONETIME ONE Stop: 03/09/19 18:38 Last Admin: 03/09/19 18:42 Dose: 30 mg Lorazepam (Ativan) 2 mg IVPUSH ONETIME ONE Stop: 03/09/19 18:34 Last Admin: 03/09/19 18:43 Dose: 2 mg Lorazepam (Ativan) 0.5 mg IVPUSH ONETIME ONE Stop: 03/12/19 03:49 Last Admin: 03/12/19 04:13 Dose: 0.5 mg Metoclopramide HCl (Reglan) 5 mg IVPUSH ONETIME ONE Stop: 03/09/19 18:34 Last Admin: 03/09/19 18:43 Dose: 5 mg Midazolam HCl (Versed 1 Mg/Ml) Confirm Administered Dose 2 mg .ROUTE .STK-MED ONE Stop: 03/09/19 21:52 Oxycodone/Acetaminophen (Percocet 325-5 Mg) 0 tab PO Q4H PRN PRN Reason: Pain (severe 7-10) Last Admin: 03/10/19 05:07 Dose: 2 tab Propofol (Diprivan 20 Ml) Confirm Administered Dose 200 mg .ROUTE .STK-MED ONE Stop: 03/09/19 21:52 - Exam Wound/Incisions: No Drainage General: Alert, Oriented HEENT: Pupils Equal Neck: Supple Lungs: Clear to Auscultation, Normal Respiratory Effort Cardiovascular: Regular Rate, Regular Rhythm GI/Abdominal Exam: Normal Bowel Sounds, Soft, Non-Tender, No Organomegaly, No Distention, No Abnormal Bruit, No Mass, Pelvis Stable Extremities: Joint Swelling, Limited Range of Motion, Increased Warmth, Other ( left ankle) Skin: Warm, Dry, Intact Neurological: No New Focal Deficit Psy/Mental Status: Alert, Normal Affect, Normal Mood - Problem List & Annotations (1) Septic joint SNOMED Code(s): 065552194 Code(s): M00.9 - PYOGENIC ARTHRITIS, UNSPECIFIED Status: Acute Current Visit: Yes Qualifiers: Septic arthritis location: ankle Septic arthritis organism: due to unspecified organism (2) Status post incision and drainage SNOMED Code(s): 598396077, 957792195 Code(s): Z98.890 - OTHER SPECIFIED POSTPROCEDURAL STATES Status: Acute Current Visit: Yes - Problem List Review Problem List Initiated/Reviewed/Updated: Yes - My Orders Last 24 Hours: Active Orders 24 hr Category Date Time Status Admission Status [Patient Status] [ADT] Routine ADT 03/12/19 09:40 Active EKG Documentation Completion [RC] ASDIRECTED Care 03/12/19 03:33 Active Ketorolac [Toradol] Med 03/12/19 13:15 Ordered 10 mg PO Q6H EKG 12 Lead [EK] Routine Ther 03/12/19 03:15 Ordered EKG 12 Lead [EK] Urgent Ther 03/12/19 03:15 Ordered Medication Orders Acetaminophen (Tylenol) 650 mg PO Q4H PRN PRN Reason: Fever Last Admin: 03/10/19 18:32 Dose: 650 mg Hydrocodone Bitart/Acetaminophen (Cameron 325-5 Mg) 1 tab PO Q3H PRN PRN Reason: Pain (mild 1-3) Sodium Chloride (Normal Saline) 1,000 mls @ 1,000 mls/hr IV ASDIRECTED [facility] Last Admin: 03/09/19 18:43 Dose: 1,000 mls/hr Lactated Ringer's (Ringers, Lactated) 1,000 mls @ 125 mls/hr IV ASDIRECTED [facility] Last Admin: 03/11/19 13:58 Dose: 125 mls/hr Infusion: 03/11/19 10:07 Dose: 125 mls/hr Admin: 03/11/19 02:07 Dose: 125 mls/hr Infusion: 03/11/19 02:07 Dose: 125 mls/hr Admin: 03/10/19 18:17 Dose: 125 mls/hr Infusion: 03/10/19 08:38 Dose: 125 mls/hr Admin: 03/10/19 00:38 Dose: 125 mls/hr Ceftriaxone Sodium 1 gm/ (Sodium Chloride) 50 mls @ 100 mls/hr IV Q24H [facility] Last Admin: 03/11/19 15:57 Dose: 100 mls/hr Admin: 03/10/19 17:28 Dose: 100 mls/hr Ketorolac Tromethamine (Toradol) 10 mg PO Q6H [facility] Stop: 03/14/19 13:16 Morphine Sulfate (Morphine) 2 mg IVPUSH Q1H PRN PRN Reason: Breakthrough Pain Last Admin: 03/12/19 03:23 Dose: 2 mg Oxycodone/Acetaminophen (Percocet 325-5 Mg) 1 - 2 tab PO Q4H PRN PRN Reason: Pain Last Admin: 03/12/19 08:14 Dose: 2 tab Admin: 03/11/19 19:43 Dose: 2 tab Admin: 03/11/19 13:58 Dose: 2 tab Admin: 03/11/19 09:06 Dose: 2 tab Admin: 03/10/19 20:03 Dose: 1 tab Sodium Chloride (Saline Flush) 10 ml FLUSH ASDIRECTED PRN PRN Reason: Keep Vein Open - Assessment Assessment (Free Text/Narrative):: Final culture results pending, no growth at one day, continue Rocephin for now, hopefully will have an organism on culture tomorrow. - Plan Plan (Free Text/Narrative):: Rocephin IV q 24, change per culture/sensitivities when available, plan at least 7 days of IV antibiotic
[2019-03-12] MEDS: Ketorolac 10 MG Tab PO SCH ×2 (14:15→21:08)
[2019-03-12] MEDS: cefTRIAXone 1 GM in Sodium Chloride 0.9% 50 ML IV SCH (15:36)
[2019-03-13] MEDS: Ketorolac 10 MG Tab PO SCH ×2 (02:58→07:23)
[2019-03-13] MEDS: Acetaminophen/oxyCODONE 325-5 MG Tab PO PRN ×2 (03:04→07:22)
--- NOTE | 2019-03-13 14:54 | OR ---
DATE OF PROCEDURE: 03/09/2019 SURGEON: Jese Velez MD PREOPERATIVE DIAGNOSIS: Septic arthritis, left ankle. POSTOPERATIVE DIAGNOSIS: Septic arthritis, left ankle. PROCEDURE: Irrigation, left ankle. ANESTHESIA: Sedation. INDICATIONS: Mr. Goldman is a 38-year-old gentleman who presents to the emergency room this evening with a 24-hour history of increasing left ankle pain and swelling. He has a warm, swollen left ankle, and inability to weightbear. He has pain with any motion of the ankle. Has markedly elevated C-reactive protein. Aspiration of the joint revealed cloudy blood- tinged fluid. He now presents for irrigation of the left ankle joint. Risks, benefits, and potential complications of the procedure were discussed. DESCRIPTION OF PROCEDURE: After adequate sedation was obtained, the left ankle was prepped and draped in the sterile fashion. A small incision was made in the anteromedial aspect of the joint, carried down through the subcutaneous tissues. A small amount of serous reactive fluid was noted in the subcutaneous tissues, superficial to the joint. A stab incision was made into the joint and, again, a small amount of cloudy fluid was present. An 18-gauge needle was placed into the anteromedial joint. A 14-gauge Jelco catheter on a needle was then placed into the anterolateral aspect of the joint. Normal saline fluid was then injected through the medial needle and irrigated out the lateral needle. This was done with multiple syringes of normal saline. The process was then repeated in the opposite direction, irrigating through the lateral site and allowing it to drain out the medial site. This was done with several syringes of normal saline beyond the point where the fluid was noted to be clear on return. Both needles were manipulated slightly to allow irrigation into both the medial and lateral gutters as well as over the dome of the talus. The needle was then removed from the Jelco catheter laterally, and the catheter was left in place as a drain. Medial incision was closed with 3-0 Vicryl and Steri-Strips. Sterile dressing was then applied over this. The patient tolerated the procedure well. There were no complications. He was taken from the operating room in a stable condition. Jese Velez MD /[id number]
== END 2019-03-13 10:20 | disposition home or self-care (01) ==
LOC: JP.ED 17:53 → JP.SDS 21:28 → JP.MS 23:00 → JP.SDS 03-13 10:20
PROVIDERS: ATTEND Specialist
DX: M00.9 Pyogenic arthritis, unspecified (principal); F17.210 Nicotine dependence, cigarettes, uncomplicated; K21.9 Gastro-esophageal reflux disease without esophagitis; Z88.0 Allergy status to penicillin
CPT/HCPCS: 27610; 36415; 73701; 80048; 83605; 83735; 85025; 85379; 85610; 86140; 87040; 87070; 87205; 93005; 93970; 99285; A9270; J0696; J1170; J1885; J2060; J2250; J2704; J2765; J3010; J3490; J7030; J7050; Q9967; 80305-QW; 93010; J2270; J7120